=== PATIENT | female | born 1990 | race Caucasian/White ===

== ENCOUNTER → 2021-10-14 14:59 | Outpatient (CLI) | payer BC, SELFPAY ==
[2021-10-14 17:32] LABS: HCG Quantitative /Beta subunit 25 mIU/mL
== END ==
PROVIDERS: PCP Nurse Practitioner; Referring Provider Nurse Practitioner; Visit Provider Nurse Practitioner
DX: N91.2 Amenorrhea, unspecified (principal)
CPT/HCPCS: 36415; 84702

== ENCOUNTER 2021-10-17 04:30 | Emergency (ER) | payer BC, SELFPAY ==
[2021-10-17 04:42] VITALS: BP 158/90; PULSE 93; RESP 17; TEMP 36.5; O2SAT 98; BMI 45.5
--- NOTE | 2021-10-17 04:42 | ED.GENADULT ---
HPI - General Adult General Chief complaint: Urogenital-Female Stated complaint: needs test Time Seen by Provider: 10/17/21 04:37 Source: patient Mode of arrival: Ambulatory Limitations: no limitations History of Present Illness HPI narrative: Patient is a 31-year-old female who has had multiple miscarriages in the past. Has been trying to get . Had multiple positive home test. Earlier in the week was seen by primary provider. Had blood drawn. Had hCG quantitative level of 25. Since then she has now had negative test at home. She is having some cramping. No vaginal bleeding. She is here to see if she is having a miscarriage. Related Data Previous Rx's Medication Instructions Recorded levothyroxine 137 mcg tablet 137 mcg PO DAILY #30 tab 10/14/21 Allergies Allergy/AdvReac Type Severity Reaction Status Date / Time No Known Drug Allergies Allergy Unverified 10/14/21 16:13 Review of Systems Constitutional Constitutional: Reports system reviewed and no additional complaints, except as documented Gastrointestinal Gastrointestinal: Reports as per HPI and Reports system reviewed and no additional complaints, except as documented Genitourinary Genitourinary: Reports system reviewed and no additional complaints, except as documented and Reports as per HPI Hematologic/Lymphatic On Anticoagulants: No Patient History Medical History 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 PCOS (polycystic ovarian syndrome) Social History Smoking Status: Never smoker alcohol intake: current (1-2 drinks per week ) substance use type: does not use Smoking Status: Never smoker Exam Initial Vital Signs Initial Vital Signs: Vital Signs Temperature 97.7 F 10/17/21 04:42 Pulse Rate 93 H 10/17/21 04:42 Respiratory Rate 17 10/17/21 04:42 Blood Pressure 158/90 H 10/17/21 04:42 Pulse Oximetry 98 10/17/21 04:42 HENMT Head: normocephalic Resp Effort & Inspection: normal respiratory effort Cardio Rate: regular rate GI Inspection: normal to inspection Skin General: no rashes or lesions noted Neuro General: patient alert, patient awake and moves all extremities Gait: normal gait Extrem General: normal to inspection Course Orders Ordered: ED Orders 10/17/21 04:50 ABO RH Type Stat HCG Quantitative /Beta subunit Stat 10/17/21 05:00 Urinalysis and Microscopic Stat Vital Signs Vital signs: Vital Signs - 8 hr 10/17/21 04:42 Temperature 97.7 F Pulse Rate 93 H Respiratory Rate 17 Blood Pressure 158/90 H Pulse Oximetry 98 Medical Decision Making Lab Data Labs: Lab Results 10/17/21 10/17/21 10/17/21 Range/Units 04:50 04:50 05:00 HCG, Quant 3.3 mIU/mL Urine Color Yellow Urine Appearance Clear Urine pH 6.5 (4.5-8.0) Ur Specific [place] <=1.005 (1.000-1.035) Urine Protein Negative (Negative) Urine Glucose (UA) Negative (Negative) g/dL Urine Ketones Negative (NEGATIVE) Urine Occult Blood Negative (Negative) Urine Nitrate Negative (Negative) Urine Bilirubin Negative (NEGATIVE) Urine Urobilinogen 0.2 (0.2) E.U./dL Ur Leukocyte Esterase Negative (NEGATIVE) Urine RBC None seen (0-5/HPF) Urine WBC None seen (0-5/HPF) Ur Squamous Epith Cells 0-1 /hpf (0-5/HPF) Urine Bacteria None seen (None) Ur Culture Indicated? Cult not indicated Blood Type O Positive MDM Narrative Medical decision making narrative: Patient had a quantitative beta hCG done earlier this week that was 25. She has had negative tests at home and today her beta-hCG is 3. Patient was informed that this is consistent with a miscarriage. Patient is Rh positive. Does not currently have any vaginal bleeding. She is going to contact her OB provider the beginning and next week for a follow-up. Discharge Plan Departure Patient Disposition: Home Clinical Impression: Miscarriage Instructions: Miscarriage Activity Restrictions/Additional Instructions: Continue to take all of your medications as directed and on Monday contact your OB office for follow-up. Return to the emergency department for any new or worsening symptoms. Prescriptions: No Action levothyroxine 137 mcg tablet 137 mcg PO DAILY Qty: 30 1RF Rx Instructions: Take 1 tab by mouth each morning on an empty stomach 30 mins prior to eating Referrals: Kristin Chadwick ARNP [Primary Care Provider] -
[2021-10-17 05:15] LABS: Appearance Urine UA CLEAR; Bilirubin Urine UA NEGATIVE (NEGATIVE); Color Urine UA YELLOW; Glucose Urine UA NEGATIVE (Negative); Ketones Urine UA NEGATIVE (NEGATIVE); Leukocyte Esterase Urine UA NEGATIVE (NEGATIVE); Nitrite Urine UA NEGATIVE (Negative); Occult Blood Urine UA NEGATIVE (Negative); Protein Urine UA NEGATIVE (Negative); Specific Gravity Urine UA <=1.005 (1.000-1.035); Urobilinogen Urine UA 0.2 E.U./dL (0.2)
[2021-10-17 05:16] LABS: pH Urine UA 6.5 (4.5-8.0)
[2021-10-17 05:23] LABS: Bacteria Urine None Seen; Culture Indicated Urine Cult Not Indicated; RBC Urine None Seen (0-5/HPF); Squamous Epithelial Cell Urine 0-1 /HPF (0-5/HPF); WBC Urine None Seen (0-5/HPF)
[2021-10-17 05:28] LABS: HCG Quantitative /Beta subunit 3.3 mIU/mL
[2021-10-17 05:48] VITALS: BP 142/85; PULSE 90; RESP 18; O2SAT 98
== END 2021-10-17 05:45 | disposition home or self-care (01) ==
PROVIDERS: Emergency Provider Emergency Medicine; PCP Nurse Practitioner
DX: O03.9 Complete or unspecified spontaneous abortion without complication (principal)
CPT/HCPCS: 36415; 81001; 84702; 86900; 86901; 99283

== ENCOUNTER → 2021-11-13 08:36 | Outpatient (CLI) | payer BC, SELFPAY ==
[2021-11-13 10:32] LABS: Hematocrit 38.7 % (36-46); Hemoglobin 13.4 g/dL (12.0-16.0); Mean Corpuscular HGB Conc 34.5 % (30-36); Mean Corpuscular Hemoglobin 30.3 PG (26-34); Mean Corpuscular Volume 87.8 fL (80-100); Platelet Count 319 X10^3/uL (150-400); Red Blood Cell Count 4.41 X10^6/uL (4.0-5.2); Red Cell Distribution Width 14.2 % (11.6-14.8); White Blood Cell Count 6.9 X10^3/uL (4.5-11.0)
[2021-11-13 10:37] LABS: Alanine Aminotransferase 20 IU/L (<35); Albumin 4.2 g/dL (3.5-5.0); Albumin Globulin Ratio 1.6 (1.0-2.8); Alkaline Phosphatase 75 U/L (38-126); Aspartate Aminotransferase 23 IU/L (14-36); BUN Creatinine Ratio 14.6 (6-22); Bilirubin Total 0.5 mg/dL (0.2-1.3); Blood Urea Nitrogen 13 mg/dL (7-17); Calcium 8.8 mg/dL (8.4-10.2); Carbon Dioxide 25 mmol/L (22-32); Chloride 106 mmol/L (98-107); Cholesterol 180 mg/dL (140-199); Estimated Glomerular Filt Rate > 60 mL/min (>60); Globulin 2.7 g/dL (1.7-4.1); Glucose 79 mg/dL (70-100); HDL Cholesterol 38 mg/dL (40-60); HEMOLYSIS < 15 (0-50); LDL Cholesterol Calculated 126 mg/dL (<100); Potassium 4.5 mmol/L (3.4-5.1); Sodium 139 mmol/L (137-145); Total Protein 6.9 g/dL (6.3-8.2); Triglycerides 78 mg/dL (35-150)
[2021-11-13 10:42] LABS: Glucose 78 mg/dL (70-100)
[2021-11-13 10:54] LABS: Follicle Stimulating Hormone 1.65 mIU/mL; Luteinizing Hormone 2.62 mIU/mL
[2021-11-13 11:06] LABS: Appearance Urine UA CLEAR; Bilirubin Urine UA NEGATIVE (NEGATIVE); Color Urine UA YELLOW; Glucose Urine UA NEGATIVE (Negative); Ketones Urine UA NEGATIVE (NEGATIVE); Leukocyte Esterase Urine UA NEGATIVE (NEGATIVE); Nitrite Urine UA NEGATIVE (Negative); Occult Blood Urine UA NEGATIVE (Negative); Protein Urine UA NEGATIVE (Negative); Urobilinogen Urine UA 0.2 E.U./dL (0.2)
[2021-11-13 11:07] LABS: Thyroid Stimulating Hormone 2.13 uIU/mL (0.47-4.68)
[2021-11-13 11:19] LABS: RBC Urine 0-1/HPF (0-5/HPF); WBC Urine 0-1/HPF (0-5/HPF); pH Urine UA 6.5 (4.5-8.0)
[2021-11-13 11:20] LABS: Bacteria Urine None Seen; Culture Indicated Urine Cult Not Indicated
[2021-11-14 12:31] LABS: Insulin Level Total 16.4 uIU/mL (2.6-24.9)
== END ==
PROVIDERS: PCP Nurse Practitioner; Referring Provider Obstetrics & Gynecology; Visit Provider Obstetrics & Gynecology
DX: Z00.00 Encounter for general adult medical examination without abnormal findings (principal); O03.9 Complete or unspecified spontaneous abortion without complication; E03.8 Other specified hypothyroidism; E06.3 Autoimmune thyroiditis; E28.2 Polycystic ovarian syndrome
CPT/HCPCS: 36415; 80053; 80061; 81001; 82947; 83001; 83002; 83525; 84443; 85027

== ENCOUNTER → 2021-12-14 13:38 | Outpatient (CLI) | payer BC, SELFPAY ==
[2021-12-14 15:52] LABS: HCG Quantitative /Beta subunit 45.9 mIU/mL
== END ==
PROVIDERS: PCP Nurse Practitioner; Referring Provider Obstetrics & Gynecology; Visit Provider Obstetrics & Gynecology
DX: N91.2 Amenorrhea, unspecified (principal)
CPT/HCPCS: 36415; 84702

== ENCOUNTER → 2021-12-16 13:35 | Outpatient (CLI) | payer BC, SELFPAY | PROVIDERS: PCP Nurse Practitioner; Referring Provider Obstetrics & Gynecology; Visit Provider Obstetrics & Gynecology | DX: N91.2 Amenorrhea, unspecified (principal) | CPT/HCPCS: 36415; 84702 ==

== ENCOUNTER → 2022-01-12 15:50 | Outpatient (CLI) | payer BC, SELFPAY ==
[2022-01-12 19:08] LABS: Appearance Urine UA CLOUDY; Bilirubin Urine UA NEGATIVE (NEGATIVE); Color Urine UA YELLOW; Glucose Urine UA NEGATIVE (Negative); Ketones Urine UA TRACE (NEGATIVE); Leukocyte Esterase Urine UA NEGATIVE (NEGATIVE); Nitrite Urine UA NEGATIVE (Negative); Occult Blood Urine UA NEGATIVE (Negative); Protein Urine UA TRACE (Negative); Specific Gravity Urine UA 1.025 (1.000-1.035); Urobilinogen Urine UA 0.2 E.U./dL (0.2); pH Urine UA 5.5 (4.5-8.0)
== END ==
PROVIDERS: Obstetrics & Gynecology; PCP Nurse Practitioner; Referring Provider Obstetrics & Gynecology; Visit Provider Obstetrics & Gynecology
DX: Z34.81 Encounter for supervision of other normal pregnancy, first trimester (principal)
CPT/HCPCS: 81003; 87086

== ENCOUNTER → 2022-01-27 17:09 | Outpatient (CLI) | payer BC, SELFPAY ==
[2022-01-27 17:55] LABS: Add Manual Diff / Slide Review NO; Basophils Absolute Auto 100 /uL (0-100); Basophils Percent Auto 0.6 % (0-2); Eosinophils Absolute Auto 100 /uL (0-450); Eosinophils Percent Auto 0.6 % (2-4); Lymphocytes Absolute Auto 2000 /uL (1100-4500); Lymphocytes Percent Auto 17.4 % (25-40); Mean Corpuscular HGB Conc 34.3 % (30-36); Mean Corpuscular Hemoglobin 30.2 PG (26-34); Monocytes Absolute Auto 800 /uL (0-900); Monocytes Percent Auto 7.5 % (3-14); Neutrophils Absolute Auto 8300 /uL (1500-7000); Neutrophils Percent Auto 73.9 % (50-75); Platelet Count 376 X10^3/uL (150-400); Red Blood Cell Count 4.32 X10^6/uL (4.0-5.2); Red Cell Distribution Width 14.2 % (11.6-14.8); White Blood Cell Count 11.3 X10^3/uL (4.5-11.0)
[2022-01-27 18:35] LABS: Free T4, Direct Thyroxine 1.28 ng/dL (0.78-2.19)
[2022-01-27 18:48] LABS: Thyroid Stimulating Hormone 7.96 uIU/mL (0.47-4.68)
[2022-01-27 19:33] LABS: HIV 1 & 2 Ab/Ag 4th Gen Combo NEGATIVE (NEGATIVE); Hep C Virus Ab w/Reflex Quant NEGATIVE s/c (NEGATIVE); Hepatitis B Surface Antigen NEGATIVE s/c (NEGATIVE); Rubella Antibody IgG 61.3 IU/mL (>15)
[2022-01-29 07:39] LABS: RPR Screen Non Reactive (Non Reactive); Varicella IgG Antibody 1692 index (Immune >165)
== END ==
PROVIDERS: PCP Nurse Practitioner; Referring Provider Obstetrics & Gynecology; Visit Provider Obstetrics & Gynecology
DX: O99.281 Endocrine, nutritional and metabolic diseases complicating pregnancy, first trimester (principal); E03.8 Other specified hypothyroidism; E06.3 Autoimmune thyroiditis; Z3A.10 10 weeks gestation of pregnancy
CPT/HCPCS: 36415; 80055; 84439; 84443; 86787; 86803; 86850; 86900; 86901; 87389

== ENCOUNTER → 2022-02-12 08:04 | Outpatient (CLI) | payer BC, SELFPAY ==
[2022-02-12 09:20] LABS: Free T4, Direct Thyroxine 1.35 ng/dL (0.78-2.19)
[2022-02-12 09:34] LABS: Thyroid Stimulating Hormone 2.06 uIU/mL (0.47-4.68)
== END ==
PROVIDERS: PCP Nurse Practitioner; Referring Provider Obstetrics & Gynecology; Visit Provider Obstetrics & Gynecology
DX: E03.8 Other specified hypothyroidism (principal); E06.3 Autoimmune thyroiditis
CPT/HCPCS: 36415; 84439; 84443

== ENCOUNTER → 2022-04-08 07:46 | Outpatient (CLI) | payer BC, SELFPAY ==
--- NOTE | 2022-04-08 07:46 | DI.US.S_ITS ---
PROCEDURE: US OB >= 14 WEEKS FETUS INDICATIONS: ANATOMY OUTSIDE/PRIOR DATING DATA: Last menstrual period (LMP): 11/17/2021. LMP-based estimated date of delivery (KATHERIN): 08/24/2022. First dating scan (date and location): 01/03/2022. Estimated date of delivery (KATHERIN) from first dating scan: 08/28/2022. The calculations are made using the working KATHERIN of 08/24/2022. TECHNIQUE: Real-time scanning was performed of the fetus, with image documentation and biometric measurements. Endovaginal scanning: Not performed COMPARISON: None. FINDINGS: General: A single living intrauterine gestation is present. Presentation: Vertex. Placenta: Placental position is anterior , without previa. Amniotic fluid index: 15.4 cm, normal range is 5-24 cm. Single deepest vertical pocket is 5.2 cm. heart rate: 149 beats per minute. Maternal cervical canal: 4.7 cm long. Normal lower limit is 2.5 cm. biometrics: Biparietal diameter: 4.9 centimeters Head circumference: 17.6 centimeters Abdominal circumference: 14.8 centimeters Femur length: 3.3 centimeters Clinically estimated gestational age: 20 weeks 2 days Composite gestational age from present scan: 20 weeks 2 days Estimated weight and percentile: 338 grams, 40th percentile Anatomic survey: Neuro: Ventricles are non-dilated at less than 10 mm. Cisterna magna is normal at 3-11 mm. Cerebellum is normal in size and morphology. Nuchal skin fold: Normal at less than 6 mm between 14-21 weeks gestational age. Face: Nose and lips, facial profile are normal. Spine: No evidence for spina bifida. Heart: Suboptimal nondiagnostic four-chamber view and right ventricular outflow tract view. Left ventricular outflow tract appears normal. Diaphragm: Diaphragm is intact. Stomach: Left-sided stomach is present. Kidneys: Neither kidney is well seen. Cord: 3-vessel cord has marginal insertion one-2 centimeters from the placental edge. Bladder: Normal in size. Extremities: All 4 extremities identified. IMPRESSION: Single living intrauterine gestation with size consistent with dates, estimated gestational age 20 weeks 2 days. Normal TANI and normal weight. Marginal cord insertion approximately 1-2 centimeters from the placental edge. Repeat examination recommended to obtain four-chamber and right ventricular outflow tract views, as well as reassess the kidneys which were all poorly visualized on the current study. We strive to produce accurate, complete, and clear reports of imaging services. To assist us in improving patient care, this report was composed using standard report templates and voice recognition software. Therefore, it may contain abnormal punctuation, insertions and/or omissions. Occasional wrong-word or sound-alike substitutions may occur. Though we review the report and make efforts to correct it, we do recommend that the report be read carefully in proper context to recognize any text inaccuracies. Dictated by: Anderson Andrews M.D. on 04/08/2022 at 13:28 Approved by: Anderson Andrews M.D. on 04/08/2022 at 13:32
== END ==
PROVIDERS: PCP Nurse Practitioner; Referring Provider Obstetrics & Gynecology; Visit Provider Obstetrics & Gynecology
DX: Z34.82 Encounter for supervision of other normal pregnancy, second trimester (principal); Z3A.20 20 weeks gestation of pregnancy
CPT/HCPCS: 76811; 76817

== ENCOUNTER → 2022-04-08 10:23 | Outpatient (CLI) | payer BC, SELFPAY ==
[2022-04-08 14:41] LABS: Urine N gonorrhoeae NOT DETECTED
[2022-04-08 14:49] LABS: Urine Chlamydia NOT DETECTED
[2022-04-11 13:47] LABS: AFP Value 25.6 ng/mL (.); Gest Age on Col Date 20.3 weeks (.); Insulin Dep Diabetes No (.); OSBR Risk 1IN 10000 (.); Results Report (.); Test Results *Screen Negative* (.)
== END ==
PROVIDERS: PCP Nurse Practitioner; Referring Provider Obstetrics & Gynecology; Visit Provider Obstetrics & Gynecology
DX: Z34.02 Encounter for supervision of normal first pregnancy, second trimester (principal); Z3A.20 20 weeks gestation of pregnancy
CPT/HCPCS: 36415; 76811; 76817; 82105; 87491; 87591

== ENCOUNTER → 2022-04-28 08:15 | Outpatient (CLI) | payer BC, SELFPAY ==
--- NOTE | 2022-04-28 08:16 | DI.US.S_ITS ---
PROCEDURE: US OB FOLLOW UP INDICATIONS: FU anatomy us and marginal cord insertion OUTSIDE/PRIOR DATING DATA: Last menstrual period (LMP): 11/17/2021. LMP-based estimated date of delivery (KATHERIN): 08/24/2022. First dating scan (date and location): 01/03/2022. Estimated date of delivery (KATHERIN) from first dating scan: 08/28/2022. TECHNIQUE: Real-time scanning was performed of the fetus, with image documentation. Endovaginal scanning: Not performed. COMPARISON: [facility], US, US OB >= 14 WEEKS FETUS, 04/08/2022, 8:02. FINDINGS: A single living intrauterine gestation is present. Presentation: Variable. Placenta: Placental position is anterior, without previa. Amniotic fluid index: 19.9 cm, normal range is 5-24 cm. Single deepest vertical pocket is 7.5 cm. heart rate: 155 beats per minute. Maternal cervical canal: 6.3 cm long. Normal lower limit is 2.5 cm. estimated gestational age: 23 weeks 1 day Right ventricular outflow tract, both kidneys, and three-vessel umbilical cord now visualized and appear normal. Four-chamber cardiac view not well seen as before. Placental cord origin approximately 2.1 centimeters from the placental edge. IMPRESSION: 1. Single living intrauterine . 2. Right ventricular outflow tract, both kidneys, and three-vessel umbilical cord now visualized and appear within normal limits. 3. Four-chamber cardiac view is not well seen as before. Follow-up ultrasound could be obtained as indicated. 4. Placental cord origin now appears central, approximately 2.1 centimeters from the placental edge. Dictated by: Addison Delgadillo M.D. on 04/29/2022 at 8:21 Approved by: Addison Delgadillo M.D. on 04/29/2022 at 8:41
== END ==
PROVIDERS: PCP Nurse Practitioner; Referring Provider Obstetrics & Gynecology; Visit Provider Obstetrics & Gynecology
DX: Z36.2 Encounter for other antenatal screening follow-up (principal); Z3A.23 23 weeks gestation of pregnancy
CPT/HCPCS: 76816

== ENCOUNTER → 2022-05-20 08:48 | Outpatient (CLI) | payer BC, SELFPAY ==
[2022-05-20 10:26] LABS: Hematocrit 36.2 % (36-46); Hemoglobin 12.2 g/dL (12.0-16.0)
[2022-05-20 10:57] LABS: GTT (PREG) 1 Hour PP 50gm Dose 148 mg/dL (76-139)
== END ==
PROVIDERS: PCP Nurse Practitioner; Referring Provider Obstetrics & Gynecology; Visit Provider Obstetrics & Gynecology
DX: Z34.02 Encounter for supervision of normal first pregnancy, second trimester (principal); Z3A.26 26 weeks gestation of pregnancy
CPT/HCPCS: 36415; 82950; 85014; 85018